=== PATIENT | female | born 1995 | race Caucasian/White ===

== ENCOUNTER 2019-08-16 15:28 | Emergency (ER) | payer OTHER, MEDICAID ==
[~2019-08-16] VITALS: Ht 160 cm; Wt 54.4 kg
[2019-08-16 15:41] VITALS: BP 112/71
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
[2019-08-16] MEDS ORDERED: KETOROLAC 60 MG/2 ML VIAL IM ONE (16:20)
[2019-08-16 16:33] VITALS: BP 112/71
--- NOTE | 2019-08-16 16:33 | NUR ---
Patient discharged with v/s stable. Written and verbal after care instructions given and explained. Patient alert, oriented and verbalized understanding of instructions. Ambulatory with steady gait. All questions addressed prior to discharge. ID band removed. Patient advised to follow up with PMD. Rx of MOTRIN,NORCO given. Patient educated on indication of medication including possible reaction and side effects. Opportunity to ask questions provided and answered.
== END 2019-08-16 16:33 | disposition home or self-care (01) ==
LOC: MED 15:28
DX: S13.4XXA Sprain of ligaments of cervical spine, initial encounter (principal); M54.6 Pain in thoracic spine; M54.5 Low back pain; Z90.49 Acquired absence of other specified parts of digestive tract; V89.2XXA Person injured in unspecified motor-vehicle accident, traffic, initial encounter; Y93.89 Activity, other specified; Y92.410 Unspecified street and highway as the place of occurrence of the external cause; Y99.8 Other external cause status
CPT/HCPCS: 96372; 99283; J1885

== ENCOUNTER 2020-09-15 22:58 | Emergency (ER) | payer MEDICAID ==
[~2020-09-15] VITALS: Ht 160 cm; Wt 57.2 kg
[2020-09-15 23:28] VITALS: BP 101/67
[2020-09-15] MEDS ORDERED: ACETAMINOPHEN 325 MG TAB PO ONE (23:50)
[2020-09-16 00:01] LABS: BASOPHILS % (AUTO) 0.6 % (0.0-2.0); EOSINOPHILS # (AUTO) 0.2 K/uL (0-0.4); EOSINOPHILS % (AUTO) 2.1 % (0.0-4.0); HEMATOCRIT 39.9 % (36-48); HEMOGLOBIN 13.3 g/dL (12.0-16.0); LYMPHOCYTES # (AUTO) 2.9 K/uL (2.5-16.5); LYMPHOCYTES % (AUTO) 38.1 % (20.5-51.1); MEAN CORPUSCULAR HEMOGLOBIN 31 pg (27-31); MEAN CORPUSCULAR HGB CONC 33 g/dL (33-37); MEAN CORPUSCULAR VOLUME 92.3 fL (80-94); MONOCYTES # (AUTO) 0.6 K/uL (0.8-1.0); NEUTROPHILS # (AUTO) 3.9 K/uL (1.8-7.7); NEUTROPHILS % (AUTO) 51.2 % (42.2-75.2); PLATELET COUNT (AUTO) 313 K/uL (140-450); RED BLOOD CELL COUNT(AUTO) 4.32 MIL/uL (4.20-5.40); RED CELL DISTRIBUTION WIDTH 12.9 % (11.6-13.7); WHITE BLOOD COUNT (AUTO) 7.7 K/uL (4.8-10.8)
[2020-09-16 00:16] LABS: ANION GAP 7.9 (8-16); CARBON DIOXIDE 30.5 mmol/L (21-32); CREATININE 0.7 mg/dL (0.6-1.3); POTASSIUM 3.4 mmol/L (3.5-5.1); TOTAL BILIRUBIN 0.3 mg/dL (0.0-1.0)
[2020-09-16] MEDS ORDERED: NACL 0.9% 1,000 ML IV ONE (01:40)
[2020-09-16] MEDS ORDERED: ONDANSETRON 4 MG/2 ML VIAL IVP ONE (01:40)
[2020-09-16] MEDS ORDERED: KETOROLAC 30 MG/ML VIAL IVP ONE (01:40)
--- NOTE | 2020-09-16 01:40 | NUR ---
PT AMBULATORY TO BED #12
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
--- NOTE | 2020-09-16 02:13 | NUR ---
PT TAKEN TO CT VIA W/C
--- NOTE | 2020-09-16 02:22 | NUR ---
PATIENT BACK FROM CT
--- NOTE | 2020-09-16 03:07 | NUR ---
Note lilliamone in EDM - 09/16/20 at 0314 by EMMIE Patient appears to be in discomfort. Vital Signs within normal limits. Respirations even and unlabored. Pain 7/10 but is slowly increasing; feels like sharp and stabbing radiating to the left side of the abdomen. Safety measures in place. Will continue to monitor patient
--- NOTE | 2020-09-16 03:07 | NUR ---
Patient appears to be in discomfort. Vital Signs within normal limits. Respirations even and unlabored. Pain 7/10 but is slowly increasing; feels like sharp and stabbing radiating to the left side of the abdomen. Safety measures in place. Will continue to monitor patient. MD notified regarding patient's pain.
[2020-09-16] MEDS ORDERED: MORPHINE SULFATE 4 MG/ML SYR IVP ONE (03:15)
[2020-09-16] MEDS ORDERED: ONDA-24 SL (04:21)
[2020-09-16] MEDS ORDERED: DOCU-299 PO (04:21)
--- NOTE | 2020-09-16 04:43 | NUR ---
IV removed, catheter intact and site benign. Applied folded 4x4 gauze and tape to stop bleeding.
[2020-09-16 04:45] VITALS: BP 108/71
--- NOTE | 2020-09-16 04:45 | NUR ---
Patient discharged with v/s stable. Written and verbal after care instructions given and explained. Patient alert, oriented and verbalized understanding of instructions. Ambulatory with steady gait. All questions addressed prior to discharge. ID band removed. Patient advised to follow up with PMD. Rx of colace and zofran ODT given. Patient educated on indication of medication including possible reaction and side effects. Opportunity to ask questions provided and answered.
== END 2020-09-16 04:02 | disposition home or self-care (01) ==
LOC: MED 22:58
DX: K59.00 Constipation, unspecified (principal)
CPT/HCPCS: 36415; 74176; 80053; 81002; 81025; 83690; 85025; 96361; 96374; 96375; 99284; J1885; J2270; J2405; J7030

== ENCOUNTER 2020-12-30 15:23 | Emergency (ER) | payer MEDICAID ==
[~2020-12-30] VITALS: Ht 160 cm; Wt 54.4 kg
[~2020-12-30 15:23] MED LIST: DOCU-299 PO; ONDA-24 SL
[2020-12-30 15:25] VITALS: BP 111/78
--- NOTE | 2020-12-30 19:15 | NUR ---
SEE COMPLETE ASSESSMENT
[2020-12-30] MEDS: KETOROLAC 15 MG/ML VIAL IM ONE (19:49)
[2020-12-30] MEDS: LIDOCAINE 5% 1 EA PATCH TP SCH (19:50)
[2020-12-30 20:40] VITALS: BP 105/66
--- NOTE | 2020-12-30 20:40 | NUR ---
Patient discharged with v/s stable. Written and verbal after care instructions given and explained. Patient verbalized understanding. Ambulatory with steady gait. All questions addressed prior to discharge. Advised to follow up with PMD.
== END 2020-12-30 20:40 | disposition home or self-care (01) ==
LOC: MED 15:23
DX: S16.1XXA Strain of muscle, fascia and tendon at neck level, initial encounter (principal); Z90.49 Acquired absence of other specified parts of digestive tract; Z79.899 Other long term (current) drug therapy; V43.52XA Car driver injured in collision with other type car in traffic accident, initial encounter; Y93.89 Activity, other specified; Y92.410 Unspecified street and highway as the place of occurrence of the external cause; Y99.8 Other external cause status
CPT/HCPCS: 81025; 96372; 99283; J1885

== ENCOUNTER 2022-01-22 14:12 | Emergency (ER) | payer MEDICAID ==
[~2022-01-22] VITALS: Ht 160 cm; Wt 58.1 kg
[~2022-01-22 14:12] MED LIST changes: +ONDA-188 SL; -ONDA-24 SL
[2022-01-22 14:22] VITALS: BP 118/74
[2022-01-22] MEDS ORDERED: KETOROLAC 30 MG/ML VIAL IM SCH (14:35)
[2022-01-22] MEDS ORDERED: IBUP-2213 PO (14:46)
--- NOTE | 2022-01-22 15:20 | NUR ---
PT WAS DRESSED WITH СВЕТЛАНА WRAP ON LEFT ANKLE. PT WAS THEN GIVEN CRUTCHES AND DEMONSTRATED SAFE USE OF CRUTCHES. +CMS.
[2022-01-22 15:22] VITALS: BP 118/68
== END 2022-01-22 15:22 | disposition home or self-care (01) ==
LOC: MED 14:19
DX: S93.602A Unspecified sprain of left foot, initial encounter (principal); Z79.1 Long term (current) use of non-steroidal anti-inflammatories (NSAID); Z79.899 Other long term (current) drug therapy; X58.XXXA Exposure to other specified factors, initial encounter; Y92.89 Other specified places as the place of occurrence of the external cause; Y93.89 Activity, other specified; Y99.8 Other external cause status
CPT/HCPCS: 73630; 96372; 99283; J1885; Q0092